=== PATIENT | male | born 1970 | race Caucasian/White ===

== ENCOUNTER → 2023-06-12 | Outpatient (CLI) | payer OTHER, SELFPAY ==
[2023-06-12 07:57] LABS: Bacteria 0 SEEN /hpf (None Seen); Mucous, Urine 0 SEEN /hpf (<or=2+); Red Blood Cells-Urine 0 SEEN /hpf (0-5); Squamous Epithelial Cells - UA 0 SEEN /hpf (0-5); White Blood Cells 0 SEEN /hpf (0-5)
[2023-06-12 10:31] LABS: Color, Urine Yellow (Yellow); Glucose, Dipstick Normal (Normal); Ketone-Dipstick Negative (Negative); Leukocyte Esterase-Dipstick Negative /ul (Negative); Nitrite-Dipstick Negative (Negative); Occult Blood-Urine Negative /ul (Negative); Protein-Dipstick 15 mg/dl (Negative); Specific Gravity, Urine 1.015 (1.002-1.030); Urine Bilirubin Dipstick Negative (Negative); Urine Clarity Clear (Clear); Urine Urobilinogen Normal (Normal)
[2023-06-12 10:46] LABS: Anion Gap 4 (5-15); BUN 21 mg/dL (7-18); BUN/Creat Ratio 17.9 RATIO (10-20); Calcium,Total 9.2 mg/dL (8.5-10.1); Chloride 108 mmol/L (98-107); Cholesterol 191 mg/dL (200); Creatinine, Serum 1.17 mg/dL (0.70-1.30); EST Glomerular Filtration Rate 69 mL/min (>60); Est Glom Filt Rate - Afr Amer 83 mL/min (>60); Glucose 110 mg/dL (74-106); High Density Lipoprotein 39 mg/dL; PSA,Total - Annual Screen 0.75 ng/mL (0.00-4.00); Potassium 4.4 mmol/L (3.5-5.1); Sodium Level 140 mmol/L (136-145); Triglycerides 174 mg/dL; Very Low Density Lipoprotein 35 mg/dL (5-40)
[2023-06-12 10:52] LABS: Microalbumin,Random Urine 52.6 mg/L (NO RANGE EST.)
== END | disposition home or self-care (01) ==
LOC: MTLAB 07:55
PROVIDERS: PCP Family Medicine; Referring Provider Family Medicine; Visit Provider Family Medicine
DX: Z00.00 Encounter for general adult medical examination without abnormal findings (principal); Z13.220 Encounter for screening for lipoid disorders; Z12.5 Encounter for screening for malignant neoplasm of prostate; I10 Essential (primary) hypertension
CPT/HCPCS: 36415; 80048; 80061; 81001; 82043; 84153; G0103

== ENCOUNTER 2025-04-15 21:45 | Emergency (ER) | payer OTHER, SELFPAY ==
[2025-04-15 21:45] VITALS: BP 120/94; PULSE 102; RESP 16; TEMP 36.9; O2SAT 99; BMI 33.9
--- NOTE | 2025-04-15 23:03 | EX.ED.DYSGE1 ---
HPI History of Present Illness Chief Complaint: Cellulitis Informant: patient and spouse/S.O. Narrative Narrative: 54-year-old male gradual onset of painful redness in his right lower leg. States he was feeling poorly tonight generally but denies any known fevers or other systemic symptoms. He states this started yesterday, no obvious etiology to started out of nowhere. He states his been walking a lot more yesterday, trying to walk more in general. He states it hurts to touch the red area. Tonight he noticed it is in his medial proximal right thigh and groin as well. Denies any chest pain, shortness of breath, syncope, history of blood clots or clotting disorders that he knows of, no recent immobilization, long travel, hospitalization, or surgery. Never had cellulitis before. No known tick bites or insect bites in this area. He denies any suspicion of a foreign body or splinter. He has not had lymphedema in his legs. States only thing that is different than he can think of is that he has been doing a lot of walking purposefully. [facility] Medical History (Updated 04/16/25 @ 00:[address] Monroe Cortez MD) Sleep apnea Hypertension Home Medications ?Medication ?Instructions ?Recorded ?Last Taken ?Type amlodipine 10 mg tablet 10 mg PO DAILY 04/16/25 Unknown History cephalexin 500 mg capsule 500 mg PO Q6 #40 CAPSULES 04/16/25 Unknown Rx lisinopril 40 mg tablet 40 mg PO DAILY 04/16/25 Unknown History Allergy/AdvReac Type Severity Reaction Status Date / Time No Known Allergies Allergy Verified 04/15/25 21:45 Social History Smoking Status: Current some day smoker tobacco type: smokeless tobacco ROS ROS ED Constitutional Constitutional ED: Reports malaise; Denies chills or fever(s) Musculoskeletal Musculoskeletal: Reports extremity pain; Denies neck pain Integumentary Reports rash; Denies Abrasions or wounds Neurologic Neurologic: Denies paresthesias or weakness EXAM Physical Exam Const Vital Signs: 04/15/25 21:45 04/15/25 23:15 04/16/25 00:00 Temperature 98.4 F 98 F 98.0 F Temperature Source Oral Oral Oral Pulse Rate 102 H 78 78 Respiratory Rate 16 18 18 Respiratory Effort Respiratory Pattern Blood Pressure 120/94 H 113/72 110/69 Blood Pressure Mean 102 85 82 Pulse Ox 99 97 95 Oxygen Delivery Method Room Air Room Air Room Air 04/16/25 00:04 04/16/25 01:00 04/16/25 02:00 Temperature 98.2 F 98.1 F Temperature Source Oral Oral Pulse Rate 73 69 Respiratory Rate 18 18 Respiratory Effort Normal Non-Labored Respiratory Pattern Normal Blood Pressure 108/67 119/79 Blood Pressure Mean 80 92 Pulse Ox 97 97 Oxygen Delivery Method Room Air Room Air 04/16/25 02:00 Temperature 98.1 F Temperature Source Pulse Rate 69 Respiratory Rate 18 Respiratory Effort Respiratory Pattern Blood Pressure 119/79 Blood Pressure Mean 92 Pulse Ox 97 Oxygen Delivery Method Positive well nourished and well developed General Appearance ED: well developed and NAD Neck full ROM and supple Resp normal respiratory effort GI non-tender and non-distended Back/Spine normal ROM and normal to inspection Extremity Extremity Narrative: Erythematous band around the right lower leg distal, it is proximal to the ankle but not as high as the main muscle belly of the gastrocnemius. It is circumferential and tender to deep palpation. There is no subcutaneous emphysema. There is no lymphangitis but in the right proximal thigh there is much more mild erythema that is mildly tender, as well as the inguinal area and some small palpable mobile tender lymph nodes. There is no induration or abscess in any of these areas. Full range of motion of the ankle, the knee, the hip, he can walk although he states that hurts a little, and all compartments are soft and nondistended. Neuro oriented x3, no focal motor deficits and no sensory deficits noted Sensorium / Orientation: alert Psych mental status grossly normal and thought process normal Skin no wounds Skin Narrative: See right lower extremity above. No other rashes or lesions. No obvious nidus for infection. MDM MDM MDM Narrative Medical decision making narrative: Clinically this looks like cellulitis and the more proximal erythema which is different appearing I think is probably due to lymphadenopathy that is reactive to the more distal infection. I had ultrasound do a Doppler of the right lower extremity, I reviewed the images and the results which I agree with, it is negative for DVT. She has some reactive lymphadenopathy in the proximal thigh consistent with my impression. I reexamined him, the erythema is not largely different or spread on the right lower leg, there is no subcutaneous emphysema and I do not think this is likely to be necrotizing fasciitis. We discussed reasons to return to the ER, but I started him on antibiotics as soon as I saw all the ultrasound images, prior to the report coming back. Since he is well-appearing and has normal vital signs, I think there is limited utility in obtaining blood work at this time which we discussed as well. There were significant delays in obtaining results of the venous duplex study. I kept patient and family up-to-date regarding the delays, and in the meantime leonardo a line around the proximal aspect of it appears to be his lower leg cellulitis. Radiography Diagnostic Testing: Clinical Impression(s) from Imaging Studies Venous Duplex 04/15/25 23:16 IMPRESSION: No sonographic evidence for deep venous thrombosis. Reading Location: [place] [id number] Discharge Plan Triage Chief Complaint: Cellulitis ED Provider: Monroe Cortez Dx/Rx/DC Orders Clinical Impression: Cellulitis of leg, right Instructions: ED Cellulitis Prescriptions: New cephalexin 500 mg capsule 500 mg PO Q6 Qty: 40 0RF No Action amlodipine 10 mg tablet 10 mg PO DAILY lisinopril 40 mg tablet 40 mg PO DAILY Primary Care Provider: Luisito Nava Referrals: Luisito Nava MD [Primary Care Provider] - 3-5 Days (call friday to make appt) Print Language: [place]de[place] Disposition Disposition: Home, Self Care
--- OUTSIDE RECORDS SUMMARY | 2025-04-15 23:12 | XMS RPT_ITS | CCD ---
Author Organization [facility] TEST TECHNICIAN [facility] Results Test Name Value Interpretation Reference Range Facility Basophil percentageOrdered B y: Tobias Nava on 06-12-2023 Basophil percentage 0 SEEN /hpf 0-5 [facility] Chloride [Moles/Vol] 108 mmol/L 98-107 [facility] Cholesterol [Mass/Vol] 191 mg/dL <200 [facility] Comment on above: <200 mg/dL Desirable 200-240 mg/dL Borderline >240 mg/dL High Risk Glucose [Mass/Vol] 110 mg/dL 74-106 [facility] Comment on above: Fasting Glucose resu lt from 100 to 125 mg/dL suggests IMPAIRED HOMEOSTASIS per A.D.A. criteria. Potassium [Moles/Vol] 4.4 mmol/L 3.5-5.1 [facility] Sodium [Moles/Vol] 140 mmol/L 136-145 [facility] Triglyceride [Mass/Vol] 174 mg/dL <199 [facility] Comment on above: The drugs N-Acetylcy steine and Metamizole may falsely depress this assay.Serum Triglycerides Reference Interval Normal <150 mg/dL Borderline high 150 - 199 mg/dL High 200 - 499 mg/dL Very High > or = 500 mg/dL Bilirubin Test strip Ql (U)O rdered By: Tobias Nava on 06-12-2023 Bilirubin Ql (U) Negative Negative [facility] Ketones Test strip Ql (U)Ord ered By: Tobias Nava on 06-12-2023 Ketones Ql (U) Negative Negative [facility] Laboratory - Chemistry and C hemistry - challengeOrdered By: Tobias Nava on 06-12-2023 CO2 [Moles/Vol] 28.0 mmol/L 21.0-32.0 [facility] Urea nitrogen/Creatinine [Mass ratio] 17.9 mg/mg 10-20 [facility] Mucus LM Ql (Urine sed)Order ed By: Tobias Nava on 06-12-2023 Mucus Ql (Urine sed) 0 SEEN /hpf [facility] Nitrite Test strip Ql (U)Ord ered By: Tobias Nava on 06-12-2023 Nitrite Ql (U) Negative Negative [facility] No Panel InformationOrdered By: Tobias Nava on 06-12-2023 Estimated GFR (MDRD) Amer 83 mL/min >60 [facility] Comment on above: GFR Calc Estimated GFR (MDRD) Non-Af Amer 69 mL/min >60 [facility] Comment on above: Non- GFR Calc Prostate Specific Antigen Screen 0.75 ng/mL 0.00-4.00 [facility] Comment on above: This test was perfor med using the TPSA assay method for theGSOUND chemistry system. Values obtained with differentassay methods cannot be used interchangably.When changing PSA assays in the course of monitoring apatient, additional sequential testing should be carriedout to confirm baseline values. Protein Test strip Ql (U)Ord ered By: Tobias Nava on 06-12-2023 Protein Ql (U) 15 mg/dl Negative [facility] Serum or plasma calcium sangeeta urement (mass/volume)Ordered By: Tobias Nava on 06-12-2023 Calcium [Mass/Vol] 9.2 mg/dL 8.5-10.1 [facility] Serum or plasma cholesterol in HDL measurement (mass/volume)Ordered By: Tobias Nava on 06-12-2023 Cholesterol in HDL [Mass/Vol] 39 mg/dL >40 [facility] Comment on above: The drugs N-Acetylcy steine and Metamizole may falsely depress this assay. Reference Range HDL <40 mg/dL Low HDL Cholesterol HDL >or= 60 mg/dL High HDL Cholesterol Serum or plasma cholesterol in VLDL measurement (mass/volume)Ordered By: Tobias Nava on 06-12-2023 Cholesterol in VLDL [Mass/Vol] 35 mg/dL 5-40 [facility] Serum or plasma creatinine m easurement (mass/volume)Ordered By: Tobias Nava on 06-12-2023 Creatinine [Mass/Vol] 1.17 mg/dL 0.70-1.30 [facility] Comment on above: The validity of the calculated GFR & GFRAA in patients over 70 years has not been determined. Clinical correlation is essential. Serum or plasma low density lipoprotein (LDL) cholesterol measurement (mass/volume)Ordered By: Tobias Nava on 06-12-2023 Cholesterol in LDL [Mass/Vol] 117 mg/dL 0-130 [facility] Serum or plasma urea nitroge n measurement (mass/volume)Ordered By: Tobias Nava on 06-12-2023 Urea nitrogen [Mass/Vol] 21 mg/dL 7-18 [facility] Squamous epithelial cells de tection in urine sediment by light microscopyOrdered By: Tobias Nava on 06-12-2023 Epithelial cells.squamous LM Ql (Urine sed) 0 SEEN /hpf 0-5 [facility] Thin prep Papanicolaou smear with manual screeningOrdered By: Tobias Nava on 06-12-2023 Thin prep Papanicolaou smear with manual screening 4 5-15 [facility] Thin prep Papanicolaou smear with manual screening 52.6 mg/L NO RANGE EST. [facility] Urine blood detectionOrdered By: Tobias Nava on 06-12-2023 RBC Ql (U) Negative Negative [facility] RBC Ql (U) 0 SEEN /hpf 0-5 [facility] Urine clarityOrdered By: Nette Nava on 06-12-2023 Clarity (U) Clear Clear [facility] Urine color determinationOrd ered By: Tobias Nava on 06-12-2023 Color (U) Yellow Yellow [facility] Urine glucose detectionOrder ed By: Tobias Nava on 06-12-2023 Glucose Ql (U) Normal mg/dl Normal [facility] Urine leukocyte esterase det ection by dipstickOrdered By: Tobias Nava on 06-12-2023 Leukocyte esterase Test strip Ql (U) Negative Negative [facility] Urine pHOrdered By: Maryan Nava on 06-12-2023 pH (U) 5.0 [pH] 5.0 - 8.0 [facility] Urine sediment bacteria coun t by microscopy (number/high power field)Ordered By: Tobias Nava on 06-12-2023 Bacteria LM.HPF (Urine sed) [#/Area] 0 /[HPF] None Seen [facility] Urine specific gravity measu rementOrdered By: Tobias aNva on 06-12-2023 Specific gravity (U) [Rel density] 1.015 1.002-1.030 [facility] Urobilinogen Auto test strip Ql (U)Ordered By: Tobias Nava on 06-12-2023 Urobilinogen Ql (U) Normal mg/dl Normal [facility] Encounters Encounter Date Encounter Type Care Provider Facility Start: 06-12-2023 End: 06-12-[address] [facility] Work Phone: Start: 06-12-2023 End: 06-12-2023 Patient encounter procedure [facility] [place] Work Phone: Payers Date Payer Category Payer Unknown [facility]/ [facility]EFIT [facility] [id number] Unknown [facility] [id number] Social History Date Type Detail [facility] Work Phone: Start: 1970 Sex Assigned At Male [facility] Evaluation note Note Date & Type Note Facility Evaluation note No assessment information availa ble [facility] Work Phone: Additional Source Comments Care Teams (unrecognized sec tion and content) Team Status: Active Member Role Status Dates Dr. Dee Xavier DO Family Provider Active Dr. Tobias Nava MD Primary Care Provider Activ e Team Status: Inactive Member Role Status Dates Dr. Tobias Nava MD Primary Care Provider, Attending Provider, Referring Provider Active Goals (unrecognized section and content) Goals may be documented in a n alternate section FOR RECORDS PERTAINING TO PATIENTS WHO ARE OR HAVE BEEN ENROLLED IN A CHEMICAL DEPENDENCY/SUBSTANCEABUSE PROGRAM, SOME INFORMATION MAY BE OMITTED. This clinical summary was aggregated from multiple sources. Caution should be exercised in using it in the provision of clinical care. This summary normalizes information from multiple sources, and as a consequence, information in this document may materially change the coding, format and clinical context of patient data. In addition, data may be omitted in some cases. CLINICAL DECISIONS SHOULD BE BASED ON THE PRIMARY CLINICAL RECORDS. [facility]. provides no warranty or guarantee of the accuracy or completeness of information in this document.
[2025-04-15 23:15] VITALS: BP 113/72; PULSE 78; RESP 18; TEMP 36.6; O2SAT 97
--- NOTE | 2025-04-15 23:16 | US_ITS ---
PROCEDURE: VENOUS DUPLEX IMAG/LIMITED/UNI 04/15/2025 REASON FOR EXAM: M 54 y/o TECHNIQUE: VENOUS DUPLEX IMAG/LIMITED/UNI RIGHT LOWER EXTREMITY VENOUS DUPLEX. COMPARISON: None. FINDINGS: There is no intraluminal echogenicity to suggest the presence of a deep venous thrombosis. Appropriate respiratory variation, augmentation and venous compression is noted. US/Venous Duplex Imag/Limited/Uni IMPRESSION: No sonographic evidence for deep venous thrombosis. Reading [facility]
[2025-04-16] VITALS: BP 110/69; PULSE 78; RESP 18; TEMP 36.7; O2SAT 95
[2025-04-16 01:00] VITALS: BP 108/67; PULSE 73; RESP 18; TEMP 36.8; O2SAT 97
[2025-04-16 02:00] VITALS: BP 119/79; PULSE 69; RESP 18; TEMP 36.7; O2SAT 97
== END 2025-04-16 02:36 | disposition home or self-care (01) ==
PROVIDERS: Emergency Provider Emergency Medicine; PCP Family Medicine; Visit Provider Emergency Medicine
DX: L03.115 Cellulitis of right lower limb (principal); I10 Essential (primary) hypertension; F17.220 Nicotine dependence, chewing tobacco, uncomplicated; Z79.899 Other long term (current) drug therapy
CPT/HCPCS: 93971; 99283